=== PATIENT | female | born 1990 | race African-American/Black ===

== ENCOUNTER 2019-07-16 19:12 | Emergency (ER) | payer OTHER ==
[~2019-07-16] VITALS: Ht 157.5 cm; Wt 61.2 kg
[~2019-07-16 19:12] MED LIST: CYCLOBENZAPRINE10 MG PO; IBUPROFEN 600600 M1 PO; NAPROSYN500 MG PO; NORCO 5-325 TA1 EACH PO
[2019-07-16 20:21] VITALS: BP 115/83
== END 2019-07-16 20:22 | disposition home or self-care (01) ==
LOC: ER 19:12
DX: J02.0 Streptococcal pharyngitis (principal); R19.7 Diarrhea, unspecified; R51 Headache